=== PATIENT | female | born 1985 | race Caucasian/White ===

== ENCOUNTER 2018-04-14 12:02 | Emergency (ER) | payer MEDICAID ==
[~2018-04-14] VITALS: Ht 165.1 cm; Wt 86.4 kg
[2018-04-14 12:10] VITALS: Ht 165.1 cm; Wt 86.4 kg
[2018-04-14] MEDS ORDERED: PREDNISONE10 MG PO (16:00)
[2018-04-14] MEDS ORDERED: ULTRAM50 MG PO (16:00)
[2018-04-14 17:40] VITALS: BP 109/49
== END 2018-04-14 16:49 | disposition home or self-care (01) ==
LOC: D.ER 12:02
DX: S83.91XA Sprain of unspecified site of right knee, initial encounter (principal); X58.XXXA Exposure to other specified factors, initial encounter; Y93.89 Activity, other specified; Y92.89 Other specified places as the place of occurrence of the external cause; F17.200 Nicotine dependence, unspecified, uncomplicated